=== PATIENT | male | born 1980 | race Caucasian/White ===

== ENCOUNTER 2016-11-01 17:30 | Emergency (ER) | payer OTHER ==
[~2016-11-01] VITALS: Ht 170.2 cm; Wt 68.2 kg
[~2016-11-01 17:30] MED LIST: CIPR500T4 PO; PHEN-538 PO
[2016-11-01 17:48] VITALS: Ht 170.2 cm; Wt 68.2 kg
[2016-11-01] MEDS ORDERED: DIPHTH/TET/ACEL PERTUSS (ADULT) 0.5 ML VIAL IM* ONE (18:00)
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
[2016-11-01 18:19] LABS: ADD SCAN DIFF NO
[2016-11-01 18:23] LABS: BASOPHILS % 0.3 % (0.0-2.0); EOSINOPHILS % 0.3 % (0.0-7.0); HEMATOCRIT 44.3 % (42.0-52.0); HEMOGLOBIN 14.9 g/dl (14.0-18.0); LYMPHOCYTES # 1.7 10^3/ul (0.8-2.9); LYMPHOCYTES % 17.7 % (15.0-51.0); MEAN CORPUSCULAR HEMOGLOBIN 30.4 pg (29.0-33.0); MEAN CORPUSCULAR HGB CONC 33.6 g/dl (32.0-37.0); MEAN CORPUSCULAR VOLUME 90.4 fl (82.0-101.0); MEAN PLATELET VOLUME 8.4 fl (7.4-10.4); MONOCYTE # 0.8 10^3/ul (0.3-0.9); NEUTROPHIL # 6.9 10^3/ul (1.6-7.5); NEUTROPHILS % 73.3 % (39.0-77.0); PLATELET COUNT 264 10^3/UL (140-415); RED CELL DISTRIBUTION WIDTH 14.6 % (11.5-14.5); WHITE BLOOD COUNT 9.5 10^3/ul (4.8-10.8)
[2016-11-01 18:33] LABS: ALBUMIN 4.2 g/dl (3.3-4.9); CHLORIDE 102 mmol/L (97-110)
[2016-11-01 18:34] LABS: POTASSIUM 3.7 mmol/L (3.5-5.1); SODIUM 144 mmol/L (135-144)
[2016-11-01 18:35] LABS: CREATININE 0.91 mg/dl (0.61-1.24)
[2016-11-01 18:36] LABS: ALANINE AMINOTRANSFERASE 33 IU/L (13-69); ALKALINE PHOSPHATASE 99 IU/L (42-121); ANION GAP 17 (8-16); ASPARTATE AMINO TRANSFERASE 38 IU/L (15-46); BILIRUBIN,INDIRECT 0.3 mg/dl (0-1.1); BILIRUBIN,TOTAL 0.3 mg/dl (0.2-1.3); BLOOD UREA NITROGEN 13 mg/dl (7-20); CARBON DIOXIDE 29 mmol/L (21-31); GLUCOSE 94 mg/dl (70-220); TOTAL PROTEIN 7.2 g/dl (6.1-8.1)
[2016-11-01 18:37] LABS: CALCIUM 9.7 mg/dl (8.4-10.2)
[2016-11-01 18:43] LABS: INR 1.1; PROTIME 14.2 Sec (12.2-14.2); PT RATIO 1.1
[2016-11-01 18:46] LABS: PARTIAL THROMBOPLASTIN TIME 30.9 Sec (25.0-35.0)
[2016-11-01 18:49] LABS: ACETAMINOPHEN < 10.0 ug/ml (10.0-30.0); ETHANOL < 10.0 mg/dl; SALICYLATE < 1.0 mg/dl (5.0-30.0)
--- NOTE | 2016-11-01 19:57 | RADRPT ---
PROCEDURE: CT Brain without contrast. CLINICAL INDICATION: Headache. Medical clearance. TECHNIQUE: A multiplanar CT of the brain was performed on a CT scanner utilizing axial imaging fro m the skull base through the vertex without IV contrast. The CTDIvol is 44.33 mGy and the DLP is 72 0.23 mGycm. One or more of the following dose reduction techniques were utilized: Automated exposu re control, adjustment of the mA and/or kV according to patient size, use of iterative reconstructio n technique. COMPARISON: None FINDINGS: No evidence of intracranial hemorrhage or abnormal extra-axial fluid collection. The brain parenchyma is normal attenuation morphology with preservation of meadows white differentiatio n and age appropriate size of the ventricles and subarachnoid spaces. The basal cisterns, posterior fossa contents, brainstem, craniocervical junction, orbits, pituitary axis, paranasal sinuses, mastoid air cells, and calvarium are unremarkable. IMPRESSION: 1. No intracranial hemorrhage or acute intracranial abnormality. RPTAT:AAJJ Physician Flor Date Time Electronically viewed and signed by Physician Flor on 11/01/2016 19:57 PURA/
--- NOTE | 2016-11-01 20:02 | RADRPT ---
PROCEDURE: CT facial bones CLINICAL INDICATION: Patient in need of medical clearance. Pain. TECHNIQUE: A CT of the facial bones was performed on a CT scanner utilizing high-resolution axial images. Sagittal, coronal, and multiplanar reformatted images were made. Additionally, 3-D reforma tted images were made. The CTDIvol is 29.5 x mGy and the DLP is 655.64 mGy-cm. COMPARISON: None. FINDINGS: The osseous structures are intact with no evidence of fracture. The orbits, as visualized, appear i ntact. The overlying soft tissues are grossly unremarkable. Polypoid mucosal thickening along the floors of the maxillary sinuses bilaterally. The paranasal sinuses are otherwise clear. IMPRESSION: No maxillofacial or mandibular fracture. No soft tissue abnormality. RPTAT:AAJJ Physician Flor Date Time Electronically viewed and signed by Physician Flor on 11/01/2016 20:01 PURA/
[2016-11-01 22:56] LABS: ADD UMIC NO; URINE BILIRUBIN (Dip) NEGATIVE (NEGATIVE); URINE BLOOD (Dip) NEGATIVE (NEGATIVE); URINE COLOR LT. YELLOW (YELLOW); URINE GLUCOSE (Dip) NEGATIVE (NEGATIVE); URINE KETONES (Dip) NEGATIVE (NEGATIVE); URINE LEUKOCYTE ESTERASE (Dip) NEGATIVE (NEGATIVE); URINE NITRITE (Dip) NEGATIVE (NEGATIVE); URINE TOTAL PROTEIN (Dip) NEGATIVE (NEGATIVE); URINE UROBILINOGEN (Dip) 0.2 E.U./dL (0.1-1.0)
[2016-11-01 23:10] LABS: BARBITURATES Positive (NEGATIVE)
[2016-11-01 23:12] LABS: OPIATES Positive (NEGATIVE)
[2016-11-01 23:16] LABS: BENZODIAZEPINES Negative (NEGATIVE); CANNABINOIDS Negative (NEGATIVE); COCAINE Negative (NEGATIVE)
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
[2016-11-03] MEDS ORDERED: ACETAMINOPHEN 500 MG TAB PO STA (16:12)
[2016-11-03] MEDS ORDERED: LORAZEPAM 1 MG TAB PO ONE (19:00)
[2016-11-03] MEDS ORDERED: IBUPROFEN 600 MG TAB PO ONE (21:30)
--- NOTE | 2016-11-03 23:34 | RADRPT ---
PROCEDURE: CT abdomen and pelvis without contrast. CLINICAL INDICATION: Abdominal pain. Pain in hernia region TECHNIQUE: CT scan of the abdomen and pelvis without contrast was performed. Sagittal and coronal reformatted images were obtained from the axial source images. CTDI = 7.87 mGy; DLP = 441.97 mGy-cm COMPARISON: CT 07/19/2016 FINDINGS: Visualized lower thorax: The lung bases are clear. There is no evidence for pleural effusion. Liver, gallbladder, pancreas and spleen: The liver is normal and size, contour and attenuation. Th ere is no evidence for a liver mass or ductal dilatation. The gallbladder is unremarkable. No comm on bile duct abnormality is demonstrated. The pancreas is unremarkable. The spleen is normal in si ze. Adrenal glands and genitourinary system: The adrenal glands are normal bilaterally. Tiny 1 mm nonob structing right upper pole renal calculus is again noted (series 3 image 62) without right-sided hyd ronephrosis. No new calculi are seen the left kidney is unremarkable. The ureters are unremarkable . No urinary bladder abnormality is demonstrated. The prostate gland is normal in size. The visua lized scrotum again demonstrates a fat containing inguinal hernia, the defect in the right inguinal canal unchanged estimated at 2.7 cm in greatest transverse dimension. The size of the right fat-con taining hernia sac is estimated at 4.7 x 4 cm unchanged from the prior study. There is no inflammat ion or fluid within the hernia sac (series 3 image 160 - 191). Gastrointestinal system: The stomach is normal in caliber with no abnormality of significance. The small bowel is normal in caliber with no ileus, obstruction or wall thickening. The appendix and s urrounding fat are within the limits of normal. The colon shows no evidence for wall thickening or acute abnormality. There is no evidence for colitis or diverticulitis. Peritoneum, retroperitoneum, lymph nodes and vessels: The abdominal aorta is normal in caliber. The re is no evidence for atherosclerotic calcification. The inferior vena cava is unremarkable. There is no evidence for adenopathy or mass. There is no ascites. Osseous structures and musculoskeletal findings: There is no fracture, lytic or blastic lesion. Uni lateral left L5 pars interarticularis defect is noted No muscular abnormality or soft tissue patholo gy is present. RPTAT:HJJR IMPRESSION: 1. Fat containing right inguinal hernia extending into the right scrotum has not changed in size or morphology compared to 07/19/2016. 2. Approximately 1 mm nonobstructing right upper pole renal calculus is again noted without new uri nary tract calculi. 3. No evidence of new intra-abdominal or intrapelvic pathology. 4. Incidental unilateral left L5 spondylolysis. Physician Ananth Date Time Electronically viewed and signed by Morteza Krishnamurthy Physician on 11/03/2016 23:34 JR/
[2016-11-04 15:12] VITALS: BP 122/72; PULSE 80; RESP 20; TEMP 98.3
== END 2016-11-04 15:44 ==
LOC: E/R 17:30
DX: S09.8XXA Other specified injuries of head, initial encounter (principal); S05.92XA Unspecified injury of left eye and orbit, initial encounter; F29 Unspecified psychosis not due to a substance or known physiological condition; S40.811A Abrasion of right upper arm, initial encounter; R40.2142 Coma scale, eyes open, spontaneous, at arrival to emergency department; R40.2362 Coma scale, best motor response, obeys commands, at arrival to emergency department; R40.2252 Coma scale, best verbal response, oriented, at arrival to emergency department; X99.1XXA Assault by knife, initial encounter; Z23 Encounter for immunization
CPT/HCPCS: 70450; 70486; 74176; 80053; 80306; 80307; 81003; 85025; 85610; 85730; 90715; Z7610; 90471